=== PATIENT | female | born 1955 | race African-American/Black ===

== ENCOUNTER 2022-12-25 20:24 | Inpatient (IN) | payer BC, OTHER ==
--- OUTSIDE RECORDS SUMMARY | 2022-12-25 20:37 | XMS REPORT | Continuity of Care Document ---
:1955 Author Organization [facility] t Address [address] [facility]. [address] [place] [address] Care Team Providers Name Role Phone Fannie WHALEN, Ryan Galeas Primary Care Physician [phone] Harrison Jay MD Attending Clinician Lauren Gimenez MD Attending Clinician Kaylie Rashid DO Attending Clinician Abimbola Carlson NP Attending Clinician Camelia Zee MA Attending Clinician Unavailable Fannie WHALEN, Ryan Galeas Attending Clinician CHARLY DELEON Attending Clinician Unavailable LAUREN GIMENEZ Admitting Clinician Unavailable Payers Payer Name Policy Type Policy Number Effective Date Expiration Date S ource Problems Condition Condition Condition Status Onset Resolution Last Treating Co mments Source Name Details Category Date Date Treatment Clinician Date Colon Colon Disease Active Overview: Method i cancer cancer 11-[address] screening screening 00:00: g of this H ospita 00 note l might be different from the original. Added automatic ally from request for surgery [id number] Hyperparat Hyperparat Disease Active M ethodi hyroidism hyroidism 10-27 00:00: Hospita 00 l Hypercalce Hypercalce Disease Active M ethodi clemente clemente 10-27 00:00: Hospita 00 l Quadriceps Quadriceps Disease Active M ethodi weakness weakness 11-03 00:00: Hospita 00 l Primary Primary Disease Active Methodi osteoarthr osteoarthr 11-03 itis of itis of 00:00: Hospita left knee left knee 00 l Prediabete Prediabete Disease Active M ethodi s s 09-16 00:00: Hospita 00 l Osteopenia Osteopenia Disease Active M ethodi 09-16 00:00: Hospita 00 l Allergies, Adverse Reactions, Alerts Allergy Allergy Status Severity Reaction(s) Onset Inactive Treating Comm ents Source Name Type Date Date Clinician Penicill Propensi Active Hives Method i ins ty to 09-16 adverse 00:00: Hospita reaction 00 l s to drug Family History Family Member Diagnosis Comments Start Date Stop Date Source Natural mother Cancer [facility] Natural mother Lung cancer [facility] Social History Social Habit Start Date Stop Date Quantity Comments Source Gender identity 2020-08-30 Identifies as Method ist 15:43:36 female gender Hospital (finding) Sexual orientation 2020-08-30 Heterosexual Meth [facility]ist 15:43:36 (finding) Hospital Alcohol intake 2022-02-23 2022-02-23 Current drinker of [facility] 00:00:00 00:00:00 alcohol (finding) Hospita History of Social 2022-02-23 2022-02-[address] function 00:00:00 00:00:00 Hospital Alcohol Comment 2022-01-04 2022-01-04 Social drinker, Meth [facility]ist 00:00:00 00:00:00 once every few Hospital weeks Cigarettes smoked 2021-10-12 2021-10-[address] current (pack per 00:00:00 00:00:00 Hospita l day) - Reported Cigarette 2021-10-12 2021-10-12 [facility] pack-years 00:00:00 00:00:00 Hospital Tobacco use and 2021-10-12 2021-10-12 Smokeless tobacco [facility] exposure 00:00:00 00:00:00 non-user Hospital Tobacco Comment 2019-09-16 2019-09-16 Quit at age 27 [facility] 00:00:00 00:00:00 Hospital History of tobacco 1977 1982-07-06 Current smoker [facility] use 00:00:00 00:00:00 Hospital Sex Assigned At [birth year] F [facility] 00:00:00 00:00:00 Hospital Smoking Status Start Date Stop Date Source Ex-smoker 2021-10-12 00:00:00 2021-10-12 00:00:00 [facility] Hospital Medications Ordered Filled Start Stop Current Ordering Indication Dosage Frequency Signature Comments Components Source Medication Medication Date Date Medication? Clinician (SIG) Name Name tiZANidine Yes [id number] TAKE 1 M ethodi (ZANAFLEX) [address] 2 MG tablet 00:00: MOUTH Hospi ta 00 TWICE l DAILY NEEDED FOR MUSCLE SPASM MAY CAUSE DROWSINESS triamcinolo Yes [id number] Q.5D Apply M ethodi ne [address] (KENALOG) 00:00: 2 (two) Hospi ta 0.5 % 00 times a l ointment day. tiZANidine 2021- No [id number] 2mg Q.5D Take 1 Methodi (ZANAFLEX) 03-21 06- tablet (2 st 2 MG tablet 00:00: 00:00 mg total) Hospita 00 :00 by mouth 2 l (two) times a day as needed for muscle spasms. May cause drowsiness . magnesium Yes Methodi oxide [address] mg 00:00: Hospita magnesium 00 l tablet turmeric-tu 0 Yes Method i rmeric root 7 st extract 00:00: Hospita 450-50 mg 00 l capsule glucosamine Yes Method i /chondr brito 3 st A sod 00:00: Hospita (glucosamin 00 l e-[place]ond[place] in) 750-600 mg tablet mv,Ca,min-f 0 Yes Method i olic 3- st acid-vit K1 00:00: Hospit a (One-A-Day 00 l Women's 50 Plus) 400-20 mcg tablet calcium Yes Methodi carbonate-v 2- st itamin D3 00:00: Hospita 600 mg-10 00 l mcg (400 unit) capsule Immunizations Ordered Immunization Filled Immunization Date Status Commen ts Source Name Name [employer] READY TO USE 2021-11-23 Completed Meth[facility] COVID-19 MRNA 00:00:00 Hospital VACCINATION PFIZER COVID-19 MRNA 2021-05-03 Completed Meth [facility] VACCINATION 00:00:00 Hospital Influenza, 2021-05-03 Completed [facility] Unspecified 00:00:00 Hospital PFIZER COVID-19 MRNA 2020-09-03 Completed Meth [facility]ist VACCINATION 00:00:00 [facility] PFIZER COVID-19 MRNA 2020-08-13 Completed Meth odist VACCINATION 00:00:00 Hospital FLUZONE QUAD 2019-04-07 Completed [facility] 00:00:00 Hospital Vital Signs Vital Name Observation Time Observation Value Comments Source Systolic blood 2022-02-23 21:14:00 129 mm[Hg] [facility] pressure Diastolic blood 2022-02-23 21:14:00 86 mm[Hg] [facility] pressure Heart rate 2022-02-23 21:14:00 65 /min [facility] Body height 2022-02-23 21:14:00 160 cm [facility] Body weight 2022-02-23 21:14:00 64.411 kg [facility] BMI 2022-02-23 21:14:00 25.15 kg/m2 [facility] Respiratory rate 2022-01-04 19:30:00 22 /min [facility] Oxygen saturation in 2022-01-04 19:30:00 98 /min [facility] Arterial blood by Pulse oximetry Body temperature 2022-01-04 19:03:00 36.56 [facility] Procedures Procedure Date / Time Performing Clinician Source Performed BONE DENSITY 2022-03-06 20:59:51 Harrison [facility] CALCIUM, 24 HOUR URINE 2022-03-06 13:18:00 Misty, Harrison [facility] (W/CREATININE) PHOSPHORUS LEVEL 2022-02-27 15:51:00 Harrison [facility] PARATHYROID HORMONE 2022-02-27 [facility] 2022-02-27 15:51:00 Harrison [facility]ital HEMOGLOBIN A1C 2022-02-27 15:51:00 Harrison [facility]ital COMPREHENSIVE METABOLIC 2022-02-27 15:51:00 [facility]IT[facility] D 25 HYDROXY 2022-02-27 15:51:00 Misty Harrison [facility] LEVEL THYROID STIMULATING 2022-02-27 15:51:00 Misty Harrison [facility] HORMONE T4, FREE 2022-02-27 15:51:00 MistyHarrison [facility] SURGICAL PATHOLOGY 2022-01-04 19:55:00 Pernell [facility] REQUEST COLONOSCOPY 2022-01-04 18:33:00 [place] [facility] Plan of Care Planned Activity Planned Date Details Comments Source Future Scheduled 2022-12-20 Hepatitis C screening [facility] Test 10:05:28 (procedure) [code = 874367999] Future Scheduled 2022-12-20 Screening for [facility] Test 10:05:28 malignant neoplasm of cervix (procedure) [code = 564646235] Future Scheduled 2022-12-20 COLONOSCOPY SCREENING [facility] Test 10:05:28 [code = COLONOSCOPY SCREENING] Future Scheduled 2022-12-20 SHINGLES VACCINES ([address] [facility] Test 10:05:28 of 2) [code = SHINGLES VACCINES (1 of 2)] Future Scheduled 2022-12-20 COVID-19 VACCINE (5 - [facility] Test 10:05:28 Booster for Pfizer series) [code = COVID-19 VACCINE (5 - Booster for Pfizer series)] Future Scheduled 2022-12-20 65+ PNEUMOCOCCAL [facility] Test 10:05:28 VACCINE (1 - PCV) [code = 65+ PNEUMOCOCCAL VACCINE (1 - PCV)] Future Scheduled 2022-12-20 BREAST CANCER [facility] Test 10:05:28 SCREENING [code = BREAST CANCER SCREENING] Future Scheduled 2022-12-20 INFLUENZA VACCINE [facility] Test 10:05:28 [code = INFLUENZA VACCINE] Encounters Start End Encounter Admission Attending Care Care Encounter Source Date/Time Date/Time Type Type Clinicians Facility Department ID 2022-03-10 2022-03-10 Oli Molina2.840.1 [id number] Bipin 00:00:00 00:00:00 Only Harrison 34013.1.1 852 3.430.2.7 Hospit a .3.296430 l .8 2022-03-06 2022-03-06 [facility], 1.2.840.1 [id number] Methodi 15:20:23 23:59:00 Encounter Harrison [address]381.1.[address] 3.430.2.7 Hospit a .3.090564 l .8 2022-03-06 2022-03-06 Outpatient [facility] [id number] [place] 00:00:00 00:00:[address] HARRISON [address] 2022-03-06 2022-03-06 Travel 1.2.840.1 1.2.134.624 [id number] Methodi 00:00:00 00:00:[address] 3.430.2.7 0.2.7.3.698 Ho spita .3.046129 084.8 l .8 2022-03-01 2022-03-01 Travel 1.2.840.1 1.2.816.414 [id number] Methodi 00:00:00 00:00:[address] 3.430.2.7 0.2.7.3.698 Ho spita .3.656874 084.8 l .8 2022-02-23 2022-02-23 [facility] 1.2.840.1 [id number] Methodi 16:00:00 16:58:28 Visit Harrison [address]5565.1.[address] 3.430.2.7 Hospit a .3.921139 l .8 2022-02-23 2022-02-23 Outpatient [facility] [id number] [place] 00:00:00 00:00:00 HARRISON [address] 2022-02-23 2022-02-23 Travel 1.2.840.1 1.2.357.635 [id number] Methodi 00:00:00 00:00:[address] 3.430.2.7 0.2.7.3.698 Ho spita .3.036085 084.8 l .8 2022-01-04 2022-01-04 Hospital Pernell, Lauren 1.2.840.1 [id number] Methodi 12:02:00 14:52:[address] 3.430.2.7 Hospit a .3.920806 l .8 2022-01-04 2022-01-04 Surgery [place], Lauren 1.2.840.1 [id number] Methodi 13:40:00 14:20:[address] 3.430.2.7 Hospit a .3.216353 l .8 2022-01-04 2022-01-04 Anesthesia , Kaylie 1.2.840.1 [id number] Methodi 13:38:00 14:00:00 Event Abimbola Carlson 72939.1.[address] 3.430.2.7 Hospit a .3.545872 l .8 2022-01-04 2022-01-04 [id number] [place] 00:00:00 00:00:[address] 2022-01-04 2022-01-04 Telephone Saadia, 1.2.840.1 [id number] Methodi 00:00:00 00:00:[address] 3.430.2.7 Hospit a .3.038597 l .8 2022-01-02 2022-01-02 Travel 1.2.840.1 1.2.076.333 [id number] [id number] Methodi 00:00:00 00:00:[address] 3.430.2.7 0.2.7.3.698 spita .3.995183 084.8 l .8 2021-12-28 2021-12-28 Refill Fannie, 1.2.840.1 [id number] 4149 Methodi 00:00:00 00:00:[address] [place] 3.430.2.7 Hospit a .3.203039 l .8 2021-11-28 2021-11-30 Outpatient [facility] [id number] [place] 00:00:00 00:00:[address] 2021-11-28 2021-11-28 Outpatient UM, [facility] [id number] [place] 00:00:00 00:00:00 RYAN [address] 2021-11-07 2021-11-07 Outpatient UM, [facility] [id number] [place] 00:00:00 00:00:00 RYAN [address] 2021-10-31 2021-10-31 Outpatient UM, [facility] [id number] [place] 00:00:00 00:00:[address] RYAN [address] 2021-10-12 2021-10-12 Outpatient [facility] [id number] [place] 00:00:00 00:00:[address] 2021-03-21 2021-03-21 Outpatient [facility] [id number] [place] 00:00:00 00:00:[address] 2020-11-30 2020-11-30 Outpatient DELEON, [facility] [id number] [place] 00:00:00 00:00:00 CHARLY [address] 2020-11-03 2020-11-03 Outpatient DELEON, [facility] [id number] [place] 00:00:00 00:00:00 CHARLY [address] 2020-11-03 2020-11-03 Outpatient DELEON, [facility] [id number] [place] 00:00:00 00:00:00 CHARLY [address] 2020-10-04 2020-10-04 Outpatient [facility], [facility] [id number] [place] 00:00:00 00:00:00 RYAN [address] 2020-10-04 2020-10-04 Outpatient UM, [facility] [id number] [place] 00:00:00 00:00:00 RYAN [address] 2020-09-27 2020-09-27 Outpatient [facility] [id number] [place] 00:00:00 00:00:[address] 2020-09-27 2020-09-27 Outpatient [facility] [id number] [place] 00:00:00 00:00:00 RYAN [address] 2020-09-20 2020-09-20 Outpatient [facility] [id number] [place] 00:00:00 00:00:[address] 2020-08-30 2020-08-30 Outpatient [facility] [id number] [place] 00:00:00 00:00:[address] RYAN [address] 2019-09-25 2019-09-25 Outpatient [facility] [id number] [place] 00:00:00 00:00:00 RYAN 102 [facility] [address] 2019-09-25 2019-09-25 Outpatient [facility] [id number] [place] 00:00:00 00:00:00 RYAN [address] Results Test Description Test Time Test Comments Results Result Comments Source Calcium 24 hour Urine (w/Creatinine) 2022-03-08 00:43:00 Test Item Value Reference Range Interpretation Comme nts Calcium/creat.ratio (test 261 See_Comment [ Automated message] The code = 00806-3) system which generated this result tra nsmitted reference range : 30 - 275 mg/g creat. The reference range was not used to interpr et this result as normal/abnormal . Calcium, 24 hour urine 290 mg/24 h H Refe rence Range 35-250 (test code = 6874-2) Low sheila cium diet 35-200 Creatinine, 24 hour urine 1.11 See_Comment [ Automated message] The (test code = 2162-6) system which generated this result tra nsmitted reference range : 0.50 - 2.15 g/24 h. Th e reference range was not used to interpr et this result as normal/abnormal . LAKE (test code = LAKE) SPLIT 02/27/2022 FROM [id number]:UNKNO WN URINE VOLUME: 1100/24FASTING: UNKNOWN RAC (test code = RAC) Performing Organization Information: Site ID: RGA Name: [facility] Address: [address] [place] [phone] Director: Christian L Joe Lab Interpretation (test Abnormal code = 91071-6) [facility] metabolic [id number] 18:19:00 Test Item Value Reference Interpretation Comments Range Glucose (test code 124 mg/dL 65-99 H Fasting reference = 2345-7) interval For so casper without known diabetes, a glu cose valuebetween 10 0 and 125 mg/dL is consistent withprediabetes and should be confi rmed with afollow-up test. BUN (test code = 20 mg/dL 02-20 3094-0) Creatinine (test 1.05 mg/dL 0.50-1.05 code = 2160-0) eGFR (test code = 59 See_Comment L The eGFR i s based on 8257) the CKD-EPI 202 1 equation. To calculate the n ew eGFR from a pre vious Creatinine or Cystatin Cresul t, go to https://www.[employer].o rg/professional s/kdo qi/gfr%5Fcalcul ator [Automated mess age] The system [employer] generated this result transmit margo reference range : > OR = 60 mL/min/1.73m2. The reference range was not used to interpret this result as normal/abnormal . BUN/creatinine NOT APPLICABLE See_Comment [Automated message] ratio (test code = The [employer] which 3097-3) generated this result transmit margo reference range : 6 - 22 (calc). The reference range was not used to interpret this result as normal/abnormal . Sodium (test code = 139 mmol/L 105-809 1901-2) Potassium (test 5.3 mmol/L 3.5-5.3 code = 2823-3) Chloride (test code 104 mmol/L 98-110 = 2075-0) CO2 (test code = 28 mmol/L 20-32 8-9) Calcium (test code 11.1 mg/dL 8.6-10.4 H = 19531-9) Protein (test code 7.2 g/dL 6.1-8.1 = 2885-2) Albumin, S (test 4.3 g/dL 3.6-5.1 code = 1751-7) Globulin, total 2.9 See_Comment [Automated message] (test code = The system [employer] 19663-8) generated this result transmit margo reference range : 1.9 - 3.7 g/dL (sheila c). The reference r donaldo was not used to interpret this result as normal/abnormal . Albumin/globulin 1.5 See_Comment [Automated message] ratio (test code = The syste m which 1758-) generated this result transmit margo reference range : 1.0 - 2.5 (calc). T he reference range was not used to interpret this result as normal/abnormal . Total bilirubin 0.5 mg/dL 0.2-1.2 (test code = 1975-2) Alkaline 56 U/L 37-153 phosphatase (test code = 6768-6) AST (test code = 13 U/L 10-35 1920-8) ALT (test code = 12 U/L 6-29 1742-6) LAKE (test code = COLLECTION KIT LAKE) GIVEN TO PATIENT. PATIENT ADVISED TO RETURN. RAC (test code = Performing RAC) Organization Information: Site ID: RGA Name: [facility] Address: [address] [place] [phone] Director: Christian Diaz Lab Interpretation Abnormal (test code = 10979-0) [facility] [id number] 18:19:00 Test Item Value Reference Interpretation Comments Range Hemoglobin A1C 6.0 See_Comment H For someone w mark (test code = known diabetes, a 4548-4) hemoglobin A1c value between 5.7% an d 6.4% is consist ent withprediabetes and should be confi rmed with a follow-u p test. For someo ne with known diab etes, a value <7%indicates that their diabetes is well controlled . U4kuehlblc shou ld be individualized based on duration ofdiabetes, age , comorbid condit ions, and otherconsiderat ions. This assay resu lt is consistent with an increased risko f diabetes. Curre ntly, no consensus ex ists regarding use ofhemoglobin A1 c for diagnosis of diabetes for children. [Auto mated message] The sy stem which generated this result transmit margo reference range : <5.7 % of total Hgb. The reference r donaldo was not used to interpret this result as normal/abnormal . LAKE (test code = COLLECTION KIT LAKE) GIVEN TO PATIENT. PATIENT ADVISED TO RETURN. RAC (test code = Performing RAC) Organization Information: Site ID: KAILA Name: [facility] Address: [address] [place] [phone] Director: Christian Diaz Lab Interpretation Abnormal (test code = 83612-7) [facility] [id number] 18:19:00 Test Item Value Reference Range Interpretation Comments Magnesium (test code 2.3 mg/dL 1.5-2.5 = 08852-3) LAKE (test code = LAKE) COLLECTION KIT GIVEN TO PATIENT. PATIENT ADVISED TO RETURN. RAC (test code = RAC) Performing Organization Information: Site ID: KAILA Name: [facility] Address: [address] [place] [phone] Director: Christian Diaz [facility] [id number] 18:19:00 Test Item Value Reference Interpretation Comments Range PTH (test 70 pg/mL 16-77 Interpretive G uide Intact code = PTH 2731-8) Calcium-------- ---- ---Normal Parathyroid Nor mal NormalHypoparat hyroidism Low or Low Normal LowHyperparathy roidism Primary Normal or High High Secondary High Normal or Low Tertiary High HighNon-Parathy roid Hypercalcemia L ow or Low Normal High LAKE (test COLLECTION KIT code = GIVEN TO PATIENT. LAKE) PATIENT ADVISED TO RETURN. RAC (test Performing code = Organization RAC) Information: Site ID: RGA Name: [facility] Address: [address] [place] [phone] Director: Christian Diaz [facility] [id number] 18:19:00 Test Item Value Reference Range Interpretation Comments Phosphorus (test code 3.2 mg/dL 2.1-4.3 = 2777-1) LAKE (test code = LAKE) COLLECTION KIT GIVEN TO PATIENT. PATIENT ADVISED TO RETURN. RAC (test code = RAC) Performing Organization Information: Site ID: KAILA Name: [facility] Address: [address] [place] [phone] Director: Christian Diaz [place] [address], [id number] 18:19:00 Test Item Value Reference Range Interpretation Comments T4, free (test code 1.1 ng/dL 0.8-1.8 = 3024-7) LAKE (test code = COLLECTION KIT GIVEN TO LAKE) PATIENT. PATIENT ADVISED TO RETURN. RAC (test code = Performing Organization RAC) Information: Site ID: KAILA Name: [facility] Address: [address] [place] [address] Director: [facility] stimulating [id number] 18:19:00 Test Item Value Reference Range Interpretation Comments TSH (test 1.29 See_Comment [Automated mes dafne] code = The system whic h 3016-3) generated this result transmit margo reference range : 0.40 - 4.50 mIU /L. The reference r donaldo was not used to interpret this result as normal/abnormal . LAKE (test COLLECTION KIT GIVEN code = LAKE) TO PATIENT. PATIENT ADVISED TO RETURN. RAC (test Performing code = RAC) Organization Information: Site ID: Sabino Name: [facility] Address: [address] [place] [address] Director: [facility] Center[facility]itamin D 25 hydroxy [id number] 18:19:00 Test Item Value Reference Range Interpretation Comments Vitamin D, 25-hydroxy 25 ng/mL 30-100 L Vitami n D Status (test code = 1988-) 25-OH V itamin D: Deficiency: <20 ng/mLInsufficie n cy: 20 - 29 ng/mLOptimal: > or = 30 ng/mL For 25-OH Vitamin D testing on patients on D2-supplementat i on and patients for whom quantitation of D2 and D3 fractions is required, the QuestAssureD(TM ) 25-OH VIT D, (D2,D3), LC/MS/MS is recommended: order code 9288 8 (patients >2yrs).See Note 1 Note 1 For additional information, please refer to http://educatio n .[employer] SciencesDiagnosti [place]/faq/FAQ19 9 (This link is being provided for informational/e d ucational purposes only.) LAKE (test code = LAKE) COLLECTION KIT GIVEN TO PATIENT. PATIENT ADVISED TO RETURN. RAC (test code = RAC) Performing Organization Information: Site ID: RGA Name: [facility] Address: [address] [place] [phone] Director: Christian Diaz Lab Interpretation Abnormal (test code = 47389-5) [facility] [id number] 14:18:35 Test Item Value Reference Range Interpretation Comments Case number (test code = [id number]) Surgical pathology See link below for report (test code = PDF Lab Report 2255) Result status (test code This is Final Report = [id number]) for [id number] [facility]
[2022-12-25] MEDS ORDERED: LEVALBUTEROL 1.25 MG/3 ML NEB ONE (21:07)
[2022-12-25] MEDS ORDERED: predniSONE 20 MG TAB ONE (21:07)
[2022-12-25] MEDS ORDERED: WATER FOR INJ,STERILE 10 ML ONE (21:07)
[2022-12-25 21:23] LABS: Absolute Lymphocytes (CBC) 2.5 K/uL (0.7-4.9); Hematocrit 43.3 % (36.0-45.0); Lymphocytes % 35.3 % (15.3-44.8); MCV 82.7 fL (80-100); Protime INR 1.13; RBC Red Blood Cell Count 5.24 M/uL (3.86-4.86)
[2022-12-25 21:39] LABS: SARS-CoV-2 Antigen Rapid Res Negative (Negative)
[2022-12-25 22:04] LABS: Albumin 3.8 g/dL (3.4-5.0); Bilirubin Direct 0.1 mg/dL (0-0.2); Bilirubin Indirect, Calculated 0.2 mg/dL (0.2-0.8); Bilirubin Total 0.3 mg/dL (0.2-1.0); Magnesium 2.5 mg/dL (1.6-2.4); Protein, Total 8.1 g/dL (6.4-8.2)
[2022-12-25 22:07] LABS: Troponin High Sensitivity 815.7 pg/mL (<58.9)
--- NOTE | 2022-12-25 22:26 | RAD REPORT ---
EXAM DESCRIPTION: RAD - Chest Single View - 12/25/2022 10:13 pm CLINICAL HISTORY: SOB COMPARISON: No comparisons FINDINGS: Lines: None. Lungs: No evidence of edema or pneumonia. Pleural: No significant pleural effusions or pneumothorax. Cardiac: The heart size is within normal limits. Mediastinum: Within normal limits. Bones: No acute fractures. Other: None IMPRESSION: No acute cardiopulmonary disease.
[2022-12-25] MEDS ORDERED: ASPIRIN 81 MG CHEWABLE TABLET ONE (23:22)
[2022-12-25] MEDS ORDERED: METOPROLOL TAR 25 MG TAB ONE (23:22)
--- NOTE | 2022-12-26 00:28 | EDPHYS ---
Physician Documentation [facility] Name: Yuliet Cadena Age: 67 yrs Sex: Female : 1955 Arrival Date: 12/25/2022 Time: 20:24 Bed 5 Private MD: ED Physician Tin Morris HPI: 12/25 20:50 This 67 yrs old Black Female presents to ER via Wheelchair with complaints of Breathing cp Difficulty. 20:50 The patient has shortness of breath at rest. Onset: The symptoms/episode began/occurred cp suddenly, today. 20:50 Duration: The symptoms are continuous, and are steadily getting worse. cp 20:50 The patient's shortness of breath is aggravated by light activity, is alleviated by cp nothing. Associated signs and symptoms: Pertinent negatives: chest pain, productive cough, diaphoresis, fever, loss of consciousness, vomiting. Severity of symptoms: in the emergency department the symptoms are unchanged despite home interventions. The patient has not experienced similar symptoms in the past. Historical: - Allergies: 20:41 PENICILLINS; kd3 - Immunization history:: Adult Immunizations up to date. - Social history:: Smoking status: Patient/guardian denies using tobacco, but has a distant history of tobacco abuse. ROS: 20:55 Constitutional: Negative for body aches, chills, fever, poor PO intake. cp 20:55 Eyes: Negative for injury, pain, redness, and discharge. cp 20:55 ENT: Negative for drainage from ear(s), ear pain, sore throat, difficulty swallowing, difficulty handling secretions. 20:55 Neck: Negative for pain with movement, pain at rest, stiffness. 20:55 Cardiovascular: Negative for chest pain, edema, palpitations. 20:55 Respiratory: Positive for shortness of breath, at rest. Negative for cough. 20:55 Abdomen/GI: Negative for abdominal pain, nausea, vomiting, and diarrhea. 20:55 Back: Negative for pain at rest, pain with movement. 20:55 Neuro: Negative for altered mental status, headache, syncope, weakness. 20:55 All other systems are negative. Exam: 21:00 Constitutional: The patient appears in no acute distress, alert, awake, cp non-diaphoretic, non-toxic, well developed, well nourished, uncomfortable. 21:00 Head/Face: Normocephalic, atraumatic. cp 21:00 Eyes: Periorbital structures: appear normal, Conjunctiva: normal, no exudate, no cp injection, Sclera: no appreciated abnormality, Lids and lashes: appear normal, bilaterally. 21:00 ENT: External ear(s): are unremarkable, Nose: is normal, Mouth: Lips: moist, Oral mucosa: pink and intact, moist, Posterior pharynx: is normal, airway is patent, no erythema, no exudate. 21:00 Neck: ROM/movement: is normal, is supple, without pain, no range of motions limitations, no meningismus, no nuchal rigidity. 21:00 Chest/axilla: Inspection: normal. 21:00 Cardiovascular: Rate: tachycardic, Rhythm: regular, Edema: is not appreciated, JVD: is not appreciated. 21:00 Respiratory: mild respiratory distress is noted, Respirations: labored breathing, that is moderate, tachypnea, that is mild, Breath sounds: decreased breath sounds, are not appreciated, stridor, is not appreciated, wheezing: that is mild, is heard diffusely. 21:00 Abdomen/GI: Inspection: abdomen appears normal, Palpation: abdomen is soft and non-tender, in all quadrants. 21:00 Back: pain, is absent, ROM is normal. 21:00 Skin: cellulitis, is not appreciated, no rash present. cp 21:00 Neuro: Orientation: to person, place \T\ time. Mentation: is normal, Motor: moves all fours, strength is normal, Sensation: is normal. 21:14 ECG was reviewed by the Attending Physician. cp Vital Signs: 20:39 BP 135 / 73; Pulse 107; Resp 25; Temp 98.3(O); Pulse Ox 91% on R/A; Weight 64.86 kg; kd3 Height 5 ft. 3 in. ; 21:30 BP 141 / 84; Pulse 111; Resp 16; Pulse Ox 100% on R/A; ph 22:17 BP 134 / 94; Pulse 120; Resp 18; Pulse Ox 96% on R/A; ph 23:37 BP 138 / 88; Pulse 118; Resp 20; Pulse Ox 95% on R/A; ll3 0530 00:30 BP 125 / 95; Pulse 96; Resp 20; Pulse Ox 98% on R/A; Pain 0/10; pf1 00:46 Weight 59 kg; pf1 01:30 BP 119 / 90; Pulse 98; Resp 20 S; Pulse Ox 97% on R/A; Pain 0/10; pf1 00:46 Body Mass Index 23.04 (59.00 kg, 160.02 cm) pf1 12/26 00:30 Pain Scale: Adult pf1 01:30 Pain Scale: Adult pf1 MDM: 12/25 20:44 Patient medically screened. cp 21:00 Differential diagnosis: Anemia Anxiety Reaction CHF exacerbation, Myocardial Infarction cp pneumonia, Pneumothorax pulmonary edema, Pulmonary Embolism reactive airway disease, Unstable Angina. 12/26 00:25 Data reviewed: vital signs, nurses notes, lab test result(s), EKG, radiologic studies, cp CT scan, plain films. 00:25 Antibiotic administration: Not indicated, the patient does not have an appreciated cp infiltrate. Management of patient was discussed with the following: Gravity Manager: DR Lorenzana who wants heparin administered with heparin drip and admit to hospitalist. I considered the following discharge prescriptions or medication management in the emergency department Medications were administered in the Emergency Department. See MAR. Counseling: I had a detailed discussion with the patient and/or guardian regarding: the historical points, exam findings, and any diagnostic results supporting the discharge/admit diagnosis, lab results, radiology results, the need for further work-up and treatment in the hospital. Response to treatment: the patient's symptoms have markedly improved after treatment. 00:30 Management of patient was discussed with the following: Hospitalist: Ofelia Peters NP cp will admit after discussion. 12/25 20:45 Order name: Basic Metabolic Panel; Complete Time: 22: cp 12/25 20:45 Order name: CBC with Diff; Complete Time: 22: cp 12/25 20:45 Order name: LFT's; Complete Time: 22: cp 12/25 20:45 Order name: Magnesium; Complete Time: 22: cp 12/25 20:45 Order name: NT PRO-BNP; Complete Time: 22: cp 12/25 20:45 Order name: PT-INR cp 12/25 20:45 Order name: Troponin HS; Complete Time: 22: 12/25 22:09 Interpretation: Reviewed. 12/25 20:49 Order name: SARS RAPID; Complete Time: 22:09 cp 12/25 20:49 Order name: Influenza Screen (a \T\ B); Complete Time: 22:09 cp 12/26 00:49 Order name: Ptt, Activated ll3 12/26 01:19 Order name: PTT, Activated Partial Thromb EDMS 12/26 01:21 Order name: Troponin High Sensitivity ll3 12/25 20:45 Order name: XRAY Chest (1 view); Complete Time: 22:52 cp 12/25 22:52 Interpretation: Report review. cp 12/25 22:14 Order name: CT Chest For PE Angio cp 12/25 20:45 Order name: EKG; Complete Time: 20:46 cp 12/25 20:45 Order name: Cardiac monitoring; Complete Time: 20:55 cp 12/25 20:45 Order name: EKG - Nurse/Tech; Complete Time: 21:10 cp 12/25 20:45 Order name: IV Saline Lock; Complete Time: 21:45 cp 12/25 20:45 Order name: Labs collected and sent; Complete Time: 21:05 cp 12/25 20:45 Order name: O2 Per Protocol; Complete Time: 20:55 cp 12/25 20:45 Order name: O2 Sat Monitoring; Complete Time: 20:55 cp 12/25 21:23 Order name: Misc. Order: Recollect GREEN TOP; Complete Time: 21:45 rv1 12/26 00:58 Order name: Misc. Order: Recollect BLUE TOP; Complete Time: 01:07 rv1 EC/29 21:14 Rate is 101 beats/min. Rhythm is regular. CO interval is normal. QRS interval is cp normal. QT interval is normal. Interpreted by me. Reviewed by me. Administered Medications: 21:05 Drug: predniSONE PO 60 mg Route: PO; kd3 22:00 Follow up: Response: No adverse reaction; Marked relief of symptoms pf1 21:05 Drug: Levalbuterol Inhalation 1.25 mg Route: Inhalation; kd3 22:00 Follow up: Response: No adverse reaction; Marked relief of symptoms pf1 23:18 Drug: Aspirin PO Chewable Tablet 324 mg Route: PO; ll3 12/26 00:00 Follow up: Response: No adverse reaction; Marked relief of symptoms; Pain is decreased pf1 12/25 23:18 Drug: Metoprolol PO 25 mg Route: PO; ll3 12/26 00:00 Follow up: Response: No adverse reaction; Marked relief of symptoms pf1 01:16 Drug: Heparin (DVT/PE- Bolus per protocol) - HEParin IVP 80 units/kg {Co-Signature: pf1 ll3 (Darlin Bosch RN).} Route: IVP; Site: left antecubital; 01:33 Drug: Heparin (DVT/PE Drip) - ([place] [address] units, D5W IV 500 ml) 18 units/kg/hr pf1 {Co-Signature: ll3 (Preethi Merchant RN).} Route: IV; Rate: calculated rate; Site: left antecubital; 01:42 Follow up: Response: No adverse reaction; Marked relief of symptoms; IV Status: pf1 Infusion continued upon admission Disposition: 04:26 Co-signature as Attending Physician, Tin Morris MD I agree with the assessment sp4 and plan of care. I reviewed the patient's care provided by the Advanced Practice Provider and agree with the diagnosis and treatment plan. Disposition Summary: 12/26/22 00:27 Hospitalization Ordered Hospitalization Status: Inpatient Admission cp Location: Telemetry/[facility] (Inpatient) cp Condition: Stable cp Problem: new cp Symptoms: have improved cp Bed/Room Type: Standard Room Assignment: [facility](12/26/22 00:41) Provider: Deborah Molina(12/26/22 00:41) sb4 Diagnosis - Saddle embolus of pulmonary artery with acute cor pulmonale cp - Dyspnea cp Forms: - Medication Reconciliation Form cp - SBAR form cp Signatures: Dispatcher [employer] EDMS John Baeza PA PA cp Garcia, Cindy RN RN cg Preethi Merchant RN RN ll3 Tesha Macdonald RN RN kd3 Nella Peters PA-C PA-C sb4 Darlin Bosch, YANELIS RN pf1 Heidi Ibrahim Sergey, MD MD sp4 Darlin Bosch RN pf1 Preethi Merchant RN ll3 Corrections: (The following items were deleted from the chart) 12/25 20:41 20:41 Allergies: No Known Allergies; kd3 kd3 05/30 00:41 00:27 Mekhi Irby cp sb4 00:41 00:27 cp
--- NOTE | 2022-12-26 00:28 | ER ---
Nurse's Notes [facility] Name: Yuliet Cadena Age: 67 yrs Sex: Female : 1955 Arrival Date: 12/25/2022 Time: 20:24 Bed 5 Private MD: Diagnosis: Saddle embolus of pulmonary artery with acute cor pulmonale;Dyspnea Presentation: 12/25 20:39 Chief complaint: Patient states: I was on my way to a family celebration for a kd3 graduation and all of the sudden i was getting out of the car and i felt like i couldn't catch my breath. This has never happened to me before. Coronavirus screen: Vaccine status: Patient reports receiving the 2nd dose of the covid vaccine. Ebola Screen: No symptoms or risks identified at this time. Initial Sepsis Screen: Does the patient meet any 2 criteria? RR > 20 per min. HR > 90 bpm. Does the patient have a suspected source of infection? No. Patient's initial sepsis screen is negative. Risk Assessment: Do you want to hurt yourself or someone else? Patient reports no desire to harm self or others. Onset of symptoms was December 25, 2022. 20:39 Method Of Arrival: Wheelchair kd3 20:39 Acuity: RUTHY 3 kd3 Triage Assessment: 20:41 General: Appears uncomfortable, Behavior is calm, cooperative. Pain: Denies pain. kd3 Respiratory: Reports shortness of breath at rest Onset: The symptoms/episode began/occurred today, the patient has moderate shortness of breath. Historical: - Allergies: 20:41 PENICILLINS; kd3 - Immunization history:: Adult Immunizations up to date. - Social history:: Smoking status: Patient/guardian denies using tobacco, but has a distant history of tobacco abuse. Screenin:22 [facility] ED Fall Risk Assessment (Adult) History of falling in the last 3 months, ph including since admission No falls in past 3 months (0 pts) Confusion or Disorientation No (0 pts) Intoxicated or Sedated No (0 pts) Impaired Gait No (0 pts) Mobility Assist Device Used No (0 pt) Altered Elimination No (0 pt) Score/Fall Risk Level 0 - 2 = Low Risk Oriented to surroundings, Maintained a safe environment, Educated pt \T\ family on fall prevention, incl call for assistance when getting out of bed. Abuse screen: Denies threats or abuse. Denies injuries from another. Nutritional screening: No deficits noted. Tuberculosis screening: No symptoms or risk factors identified. Assessment: 21:22 General: Appears uncomfortable, Behavior is calm, cooperative. Pain: Denies pain. ph Neuro: Level of Consciousness is awake, alert, obeys commands, Oriented to person, place, time, situation. Cardiovascular: Reports shortness of breath, Denies chest pain, Rhythm is sinus tachycardia. Respiratory: Reports shortness of breath Airway is patent Respiratory effort is labored, Respiratory pattern is regular, symmetrical, Derm: Skin is pink, warm \T\ dry. 22:30 Reassessment: Patient appears in no apparent distress at this time. Patient is alert, pf1 oriented x 3, equal unlabored respirations, skin warm/dry/pink. Patient states symptoms have improved. 23:30 Reassessment: Patient appears in no apparent distress at this time. Patient and/or pf1 family updated on plan of care and expected duration. Pain level reassessed. Patient is alert, oriented x 3, equal unlabored respirations, skin warm/dry/pink. Patient states symptoms have improved. 12/26 00:30 Reassessment: Patient appears in no apparent distress at this time. Patient and/or pf1 family updated on plan of care and expected duration. Pain level reassessed. Patient is alert, oriented x 3, equal unlabored respirations, skin warm/dry/pink. Patient states feeling better. Patient states symptoms have improved. 01:30 Reassessment: Patient appears in no apparent distress at this time. Patient and/or pf1 family updated on plan of care and expected duration. Pain level reassessed. Patient is alert, oriented x 3, equal unlabored respirations, skin warm/dry/pink. Patient states feeling better. Patient states symptoms have improved. Vital Signs: 12/25 20:39 BP 135 / 73; Pulse 107; Resp 25; Temp 98.3(O); Pulse Ox 91% on R/A; Weight 64.86 kg; kd3 Height 5 ft. 3 in. ; 21:30 BP 141 / 84; Pulse 111; Resp 16; Pulse Ox 100% on R/A; ph 22:17 BP 134 / 94; Pulse 120; Resp 18; Pulse Ox 96% on R/A; ph 23:37 BP 138 / 88; Pulse 118; Resp 20; Pulse Ox 95% on R/A; ll3 12/26 00:30 BP 125 / 95; Pulse 96; Resp 20; Pulse Ox 98% on R/A; Pain 0/10; pf1 00:46 Weight 59 kg; pf1 01:30 BP 119 / 90; Pulse 98; Resp 20 S; Pulse Ox 97% on R/A; Pain 0/10; pf1 00:46 Body Mass Index 23.04 (59.00 kg, 160.02 cm) pf1 12/26 00:30 Pain Scale: Adult pf1 01:30 Pain Scale: Adult pf1 ED Course: 12/25 20:25 Patient arrived in ED. mr 20:31 John Baeza PA is PHCP. cp 20:31 Tin Morris MD is Attending Physician. cp 20:41 Triage completed. kd3 20:41 Arm band placed on right wrist. kd3 21:05 Basic Metabolic Panel Sent. kd3 21:05 CBC with Diff Sent. kd3 21:05 LFT's Sent. kd3 21:05 Magnesium Sent. kd3 21:05 NT PRO-BNP Sent. kd3 21:05 PT-INR Sent. kd3 21:05 Troponin HS Sent. kd3 21:22 Patient has correct armband on for positive identification. Bed in low position. Call ph light in reach. Side rails up X 1. Adult w/ patient. 21:40 Inserted saline lock: 22 gauge in left antecubital area, using aseptic technique. Blood ah1 collected. 22:14 XRAY Chest (1 view) In Process Unspecified. EDMS 23:37 CT Chest For PE Angio In Process Unspecified. EDMS 12/26 00:26 Mekhi Irby is Hospitalizing Provider. cp 00:41 Deborah Molina MD is Hospitalizing Provider. sb4 01:41 No provider procedures requiring assistance completed. Patient admitted, IV remains in pf1 place. 01:42 Troponin High Sensitivity Sent. pf1 Administered Medications: 12/25 21:05 Drug: predniSONE PO 60 mg Route: PO; kd3 22:00 Follow up: Response: No adverse reaction; Marked relief of symptoms pf1 21:05 Drug: Levalbuterol Inhalation 1.25 mg Route: Inhalation; kd3 22:00 Follow up: Response: No adverse reaction; Marked relief of symptoms pf1 23:18 Drug: Aspirin PO Chewable Tablet 324 mg Route: PO; ll3 12/26 00:00 Follow up: Response: No adverse reaction; Marked relief of symptoms; Pain is decreased pf1 12/25 23:18 Drug: Metoprolol PO 25 mg Route: PO; ll3 12/26 00:00 Follow up: Response: No adverse reaction; Marked relief of symptoms pf1 01:16 Drug: Heparin (DVT/PE- Bolus per protocol) - HEParin IVP 80 units/kg {Co-Signature: pf1 ll3 (Darlin Bosch RN).} Route: IVP; Site: left antecubital; 01:33 Drug: Heparin (DVT/PE Drip) - ([place] [address] units, D5W IV 500 ml) 18 units/kg/hr pf1 {Co-Signature: [email or web address] (Preethi Merchant RN).} Route: IV; Rate: calculated rate; Site: left antecubital; 01:42 Follow up: Response: No adverse reaction; Marked relief of symptoms; IV Status: pf1 Infusion continued upon admission Medication: 01:41 VIS not applicable for this client. pf1 Outcome: 00:27 Decision to Hospitalize by Provider. cp 01:52 Admitted to Med/surg accompanied by nurse, via stretcher, room 228, with chart, Report pf1 called to YANELIS Hall 01:52 Condition: stable 01:52 Instructed on the need for admit, Demonstrated understanding of instructions. 02:03 Patient left the ED. pf1 Signatures: Dispatcher [facility] Carmella Agrawal Patricia, RN RN ph Page, Corey, Preethi Rowell cp, RN RN ll3 Tesha Macdonald RN RN kd3 Nella Peters PAJoseph PA-Darlin Reyes RN RN [email or web address] Adrian Armijo Darlin Banks RN, Lynsea RN ll3 Corrections: (The following items were deleted from the chart) 12/25 20:41 20:41 Allergies: No Known Allergies; kd3 kd3 12/26 01:55 01:16 Heparin (DVT/PE- Bolus per protocol) - HEParin IVP 80 units/kg IVP in left ll3 antecubital; Heparin ordered bolus changed to 4000units IVP per John Baeza,PA pf1
--- NOTE | 2022-12-26 00:36 | P.HP ---
Certification for Inpatient Patient admitted to: Inpatient With expected LOS: >2 Midnights Patient will require the following post-hospital care: None Practitioner: I am a practitioner with admitting privileges, knowledge of patient current condition, hospital course, and medical plan of care. Services: Services provided to patient in accordance with Admission requirements found in Title 42 Section 412.3 of the Code of Federal Regulations Patient History Date of Service: 12/26/22 Reason for admission: Bilateral PE History of Present Illness: Ms. Cadena is a 67-year-old female with no past medical history who presented to the emergency department with complaints of sudden onset of shortness of breath prior to arrival. She was noted to be tachycardic and hypoxic at 90% on room air upon arrival. Work-up revealed an elevated troponin at 815. Subsequent CTA chest showed bilateral pulmonary thromboemboli with thin saddle embolism and findings suggestive of right heart strain. Other labs significant for JULITA with a creatinine of 1.4, BUN 20. Oxygenation has improved after breathing treatment. Pulmonology was contacted and recommended initiation of heparin drip. Patient denies any recent travel, prolonged immobilization, recent surgeries, history of clotting disorders. She denies any chest pain or daily medication use. She will be admitted for further management. Allergies Penicillins Allergy (Verified 12/26/22 00:44) unknown Home medications list reviewed: Yes - Past Medical/Surgical History Diabetic: No Past Medical History: Patient denies medical history -: Bilateral Knees Psychosocial/ Personal History: Patient is . - Family History Mother -: Lung disease, Cancer - Social History Smoking Status: Former smoker Alcohol use: No CD- Drugs: No Caffeine use: Yes Place of Residence: Home Review of Systems Respiratory: Shortness of Breath Physical Examination - Vital Signs Temperature: 98.3 F Blood Pressure: 138/88 Pulse: 118 Respirations: 20 Pulse Ox (%): 95 - Physical Exam General: Alert, In no apparent distress HEENT: Atraumatic, EOMI, Sclerae nonicteric Neck: Supple, 2+ carotid pulse no bruit Respiratory: Clear to auscultation bilaterally, Normal air movement Cardiovascular: Regular rate/rhythm, Normal S1 S2 Gastrointestinal: Normal bowel sounds, No tenderness Musculoskeletal: No tenderness Integumentary: No rashes Neurological: Normal speech, Normal affect - Studies Laboratory Data (last 24 hrs) 12/25/22 21:37: Sodium 139, Potassium 4.0, BUN 20 H, Creatinine 1.40 H, Glucose 120 H, Magnesium 2.5 H, Total Bilirubin 0.3, AST 25, ALT 30, Alkaline Phosphatase 84 12/25/22 21:00: PT 12.4, INR 1.13 12/25/22 21:00: WBC 7.20, Hgb 14.2, Hct 43.3, Plt Count 241 Microbiology Data (last 24 hrs): 12/25/22 21:00 Nasopharnyx Influenza Type A Antigen Screen - Final 12/25/22 21:00 Nasopharnyx Influenza Type B Antigen Screen - Final Assessment and Plan - Problems (Diagnosis) (1) Pulmonary embolism, bilateral Current Visit: Yes Status: Acute (2) Saddle embolism of pulmonary artery Current Visit: Yes Status: Acute Qualifiers: Chronicity: acute Acute cor pulmonale presence: with acute cor pulmonale Qualified Code(s): I26.02 - Saddle embolus of pulmonary artery with acute cor pulmonale - Plan Patient is admitted for further management of bilateral PEs. Chest CTA showed bilateral pulmonary thromboemboli with thin saddle embolus and findings suggestive of right heart strain. Dr. Lorenzana contacted and recommended heparin drip, started in ED. Etiology of PE is unclear. She denies any recent travel, surgeries, prolonged immobilization, clotting disorders. She states her daughter did have a PE somewhat recently with unknown cause. Troponin elevation highly likely secondary to right heart strain. Continue to trend. Monitor pulse oximetry closely. Initially 90% on RA but now satisfactory. PRN breathing treatments. IV hydration for mild JULITA. Monitor and replete electrolytes per protocol. Discharge Plan: Home Plan to discharge in: Greater than 2 days - Advance Directives Does patient have a Living Will: No Does patient have a Durable POA for Healthcare: No - Code Status/Comfort Care Code Status Assessed: Yes Code Status: Full Code Physician Review: Patient Assessed, Agree with Above Assessment and Plan Critical Care: No Time Spent Managing Pts Care (In Minutes): 50
[2022-12-26] MEDS ORDERED: HEPARIN 5000 UNIT/ML 1 ML VIAL ONE (00:42)
[2022-12-26] MEDS ORDERED: HEPARIN/D5W 25,000 UNIT/500 ML BAG IV ONE (00:43)
[2022-12-26] MEDS ORDERED: IPRATROPIUM BROM 0.5MG/2.5ML NEB PRN (02:02)
[2022-12-26] MEDS ORDERED: ONDANSETRON 4 MG/2 ML VIAL IV PRN (02:02)
[2022-12-26] MEDS ORDERED: HEPARIN/D5W 25,000 UNIT/500 ML BAG IV SCH (02:02)
[2022-12-26] MEDS ORDERED: ACETAMINOPHEN 500 MG TAB PO PRN (02:02)
[2022-12-26] MEDS ORDERED: ALBUTEROL 2.5 MG/3 ML NEB SOL NEB PRN ×2 (02:02→13:00)
[2022-12-26] MEDS ORDERED: NA CHLORIDE 0.9% 1,000 ML IV SCH (02:02)
[2022-12-26 02:58] VITALS: BMI 24.9
[2022-12-26 05:47] LABS: Renal Epithelial <5 /HPF (None Seen); Specific Gravity 1.023 (1.005-1.030); Urine Bacteria None Seen /HPF (<20); Urine Bilirubin NEGATIVE (Negative); Urine Blood 1+ (Negative); Urine Clarity Clear (Clear); Urine Color Colorless (Yellow); Urine Glucose 2+ (Negative); Urine Protein NEGATIVE (Negative); Urine RBC <5 /HPF (None Seen); Urine Urobilinogen Normal (Normal)
[2022-12-26] MEDS ORDERED: PNEUMOCOCCAL VACCINE 0.5 ML IMVAC ONE (08:00)
[2022-12-26] MEDS: APIXABAN 5 MG TABLET PO SCH ×2 (09:49→20:18)
--- NOTE | 2022-12-26 11:22 | RAD REPORT ---
EXAM DESCRIPTION: CT - Chest For Pe Angio - 12/26/2022 7:03 am ADDENDUM #1 THIS REPORT CONTAINS FINDINGS THAT MAY BE CRITICAL TO PATIENT CARE: The findings were verbally discus sed via telephone conference with Dr. Baeza by Dr. Gerber Barrow on 12/26/2022 12:04 AM CDT .The resul ts were acknowledged and understood. Electronically signed by: Brigitte Barrow MD 12/26/2022 12:04 AM CDT End of Addendum EXAM DESCRIPTION: CT Angiography Chest With Intravenous Contrast CLINICAL HISTORY: The patient is 67 years old and is Female; SOB TECHNIQUE: Axial computed tomographic angiography images of the chest with intravenous contrast. S agittal and coronal reformatted images were created and reviewed. This CT exam was performed using one or more of the following dose reduction techniques: automated exposure control, adjustment of t he mA and/or kV according to patient size, and/or use of iterative reconstruction technique. MIP reconstructed images were created and reviewed. COMPARISON: No relevant prior studies available. FINDINGS: PULMONARY ARTERIES: Filling defect within the right main pulmonary artery extending into the right upper, right lower, right middle lobe pulmonary arteries and branches is present. A thin s addle embolus is present. Filling defect within the left main pulmonary artery extending into the lef t upper and left lower lobe pulmonary arteries and branches is present. AORTA: No acute findings. No thoracic aortic aneurysm. LUNGS: Minimal platelike atelectasis within the bilateral lower lobes is noted. The lungs are oth erwise well-inflated and clear. No mass. PLEURAL SPACE: Unremarkable. No significant effusion. No pneumothorax. HEART: There is an increased RV LV ratio. No significant pericardial effusion. BONES/JOINTS: No acute fracture. No dislocation. SOFT TISSUES: Unremarkable. LYMPH NODES: Unremarkable. No enlarged lymph nodes. IMPRESSION: Bilateral pulmonary thromboemboli with thin saddle embolus and findings suggestive of ri ght heart strain. Electronically signed by: Brigitte Barrow MD 12/25/2022 11:55 PM CDT Due to temporary technical issues with the PACS/Fluency reporting system, reports are being signed by the in house radiologists without review as a courtesy to insure prompt reporting. The interpreting radiologist is fully responsible for the content of the report.
--- NOTE | 2022-12-26 12:14 | P.CNS ---
Date of Consult: 12/26/22 Reason for Consult: Bilateral pulmonary embolism Chief Complaint: Bilateral PE History of Present Illness: Patient is 67 years of age he was visiting for a graduation celebration from [facility] acute onset of shortness of breath came here to the hospital and was diagnosed with bilateral pulmonary embolism other risk factors for pulmonary embolism patient is active works no prior history of thromboembolism and she is doing better Allergies Penicillins Allergy (Verified 12/26/22 02:07) Anaphylaxis Home Medications: Tizanidine HCl [Zanaflex] 2 mg PO BIDP PRN 12/26/22 - Past Medical/Surgical History Diabetic: No -: Bilateral Knees -: hysterectomy Psychosocial/ Personal History: Patient is . - Family History Mother Medical History: Lung disease, Cancer - Social History Smoking Status: Former smoker Alcohol use: Yes CD- Drugs: No Caffeine use: Yes Place of Residence: Home Review of Systems 10-point ROS is otherwise unremarkable Physical Examination Temp Pulse Resp BP Pulse Ox 98.4 F 94 H 16 136/85 91 12/26/22 08:00 12/26/22 08:00 12/26/22 08:00 12/26/22 08:00 12/26/22 08:00 General: Alert, Oriented x3 Neck: Supple Respiratory: Clear to auscultation bilaterally Cardiovascular: No edema, Regular rate/rhythm Laboratory Data (last 24 hrs) 12/25/22 21:37: Sodium 139, Potassium 4.0, BUN 20 H, Creatinine 1.40 H, Glucose 120 H, Magnesium 2.5 H, Total Bilirubin 0.3, AST 25, ALT 30, Alkaline Phosphatase 84 12/25/22 21:00: PT 12.4, INR 1.13, APTT Cancelled 12/25/22 21:00: WBC 7.20, Hgb 14.2, Hct 43.3, Plt Count 241 - Problems (1) Pulmonary embolism, bilateral Current Visit: Yes Status: Acute Plan: Patient is 67 years of age admitted with bilateral pulmonary embolism hemodynamically stable oxygenation satisfactory and can be changed over to p.o. Eliquis milligrams twice a day for 7 days then 5 mg twice daily possibly for an indefinite. Patient has idiopathic pulmonary embolism he is currently stable denies any shortness of breath plan for discharge home he has some right ventricular strain which cause elevation of her troponins patient has mild chronic renal failure I presume may have had some right ventricular strain
--- NOTE | 2022-12-27 07:10 | EKG ---
Test Date: 2022-12-25 Test Time: 21:07:34 Laboratory Secretary: LL MEASUREMENT RESULTS: Intervals: Rate: 101 DE: 152 QRSD: 86 QT: 342 QTc: 443 [place]: P: 73 DE: 152 QRS: 71 T: 34 INTERPRETIVE STATEMENTS: Sinus tachycardia Nonspecific T wave abnormality Abnormal ECG No previous ECG available for comparison Electronically Signed On 12-27-22 07:06:57 CDT by Alfonzo Chua
[2022-12-27] MEDS: APIXABAN 5 MG TABLET PO SCH (08:09)
--- NOTE | 2022-12-27 08:23 | ECHO ---
HEIGHT: 5 ft 3 in WEIGHT: 140 lb 9.6 oz DATE OF STUDY: 12/26/[address]: Alfonzo Chua MD 2-DIMENSIONAL: YES M.MODE: YES DOPPLER: YES COLOR FLOW: YES TDS: PORTABLE: YES DEFINITY: BUBBLE STUDY: DIAGNOSIS: PULMONARY EMBOLISM CARDIAC HISTORY: CATHERIZATION: SURGERY: PROSTHETIC VALVE: PACEMAKER: MEASUREMENTS (cm) DIASTOLIC (NORMALS) SYSTOLIC (NORMALS) IVSd 0.8 (0.6-1.2) LA Diam 3.3 (1.9-4.0) LVEF 78% LVIDd 4.0 (3.5-5.7) LVIDs 2.2 (2.0-3.5) %FS 47% LVPWd 1.0 (0.6-1.2) Ao Diam 2.5 (2.0-3.7) 2 DIMENSIONAL ASSESSMENT: RIGHT ATRIUM: NORMAL LEFT ATRIUM: NORMAL RIGHT VENTRICLE: NORMAL LEFT VENTRICLE: NORMAL TRICUSPID VALVE: NORMAL MITRAL VALVE: NORMAL PULMONIC VALVE: NORMAL AORTIC VALVE: NORMAL PERICARDIAL EFFUSION: NONE AORTIC ROOT: NORMAL LEFT VENTRICULAR WALL MOTION: NORMAL DOPPLER/COLOR FLOW: NORMAL COMMENTS: 1. NORMAL 2-DIMENSIONAL ECHOCARDIOGRAM WITH DOPPLER. 2. NO WALL MOTION ABNORMALITY 3. NORMAL RIGHT VENTRICULAR SYSTOLIC PRESSURE TECHNOLOGIST: JASON GARCIA
[2022-12-27 09:16] VITALS: O2SAT 97
--- NOTE | 2022-12-27 10:13 | P.PN ---
Date of Service: 12/26/22 Subjective Patient is doing well with no new c/o Physical Examination - Vital Signs reviewed - Physical Exam General: Alert, In no apparent distress Respiratory: Clear to auscultation bilaterally, Normal air movement Cardiovascular: Regular rate/rhythm, Normal S1 S2 Gastrointestinal: Normal bowel sounds, No tenderness Musculoskeletal: No tenderness Neurological: No focal deficits Assessment and Plan - Problems (Diagnosis) (1) Pulmonary embolism, bilateral Current Visit: Yes Status: Acute (2) Saddle embolism of pulmonary artery Current Visit: Yes Status: Acute Chronicity: acute Acute cor pulmonale presence: with acute cor pulmonale Qualified Code(s): I26.02 - Saddle embolus of pulmonary artery with acute cor pulmonale - Plan -thin saddle embolus and findings suggestive of right heart strain. -Dr. Lorenzana changed to [place] -Etiology of PE is unclear. She denies any recent travel, surgeries, prolonged immobilization, clotting disorders. She states her daughter did have a PE somew hat recently with unknown cause. -Troponin elevation highly likely secondary to right heart strain. Echo pending -Monitor pulse oximetry closely -PRN breathing treatments. -Heplock IV Discharge Plan: Home Plan to discharge in: Greater than 2 days - Advance Directives Does patient have a Living Will: No Does patient have a Durable POA for Healthcare: No - Code Status/Comfort Care Code Status Assessed: Yes Code Status: Full Code Physician Review: Patient Assessed, Agree with Above Assessment and Plan Critical Care: No Time Spent Managing Pts Care (In Minutes): 50
[2022-12-27 11:53] LABS: Absolute Lymphocytes (CBC) 2.8 K/uL (0.7-4.9); Hematocrit 42.5 % (36.0-45.0); MCV 83.2 fL (80-100); RBC Red Blood Cell Count 5.11 M/uL (3.86-4.86)
--- NOTE | 2022-12-27 12:10 | CON ---
Date of Consultation: 12/26/2022 Reason For Consultation: Elevated troponin. History Of Present Illness: Ms. Cadena is a 67-year-old, who really is fairly healthy, lives in [facility], not really has any past medical history of any significance, but came into the hospital with sudden shortness of breath, elevated D-dimer, elevated troponin, was found to have a saddle embolus. No cardiac complaint at this point. She denied palpitations or syncope. Past Medical History: Negative. Allergies: INCLUDE PENICILLIN. Medications: At home are none. Review of Systems: Negative. Social History: Negative. Family History: Negative. Physical Examination: Vital Signs: Stable, afebrile. HEENT: Negative. Neck: Supple with no bruit. Chest: Clear. Cardiac: Revealed a regular rhythm and rate. No murmurs, gallops, or rubs. Abdomen: Benign. Extremities: Revealed no clubbing, cyanosis, or edema. Diagnostic Data: As stated earlier. Impression And Plan: Elevated troponin, elevated D-dimer secondary to saddle embolus. She is on hep misty drip. Echocardiogram is pending. Rule out right ventricular strain and pulmonary hypertension. She will eventually need an outpatient Lexiscan that will be arranged by doctor in [place] where she lives. No further cardiac workup at this point other than the echo. JURGEN/SHAMEKA Voice ID: [id number] Report ID: [id number]
[2022-12-27 12:14] LABS: Albumin 3.6 g/dL (3.4-5.0); Bilirubin Total 0.3 mg/dL (0.2-1.0); Magnesium 2.5 mg/dL (1.6-2.4); Potassium 3.8 mEq/L (3.5-5.1); Protein, Total 7.7 g/dL (6.4-8.2)
[2022-12-27 12:21] LABS: Troponin High Sensitivity 350.8 pg/mL (<58.9)
[2022-12-27 12:48] VITALS: BP 119/76; TEMP 98.8
[2022-12-27] MEDS ORDERED: POTASSIUM CL SA 10 MEQ TAB PO ONE (12:55)
[2022-12-28 06:18] LABS: RPR (Rapid Plasma Reagin) NON-REACT (NON-REACT)
[2022-12-30 21:12] LABS: Alpha-1-Globulins 0.3 g/dL (0.2-0.3); Gamma Globulins 1.1 g/dL (0.8-1.7); INTERPRETATION REPORT
[2022-12-31 12:18] LABS: Prothrombin Gene Analysis Test NEGATIVE
== END 2022-12-27 15:02 | disposition home or self-care (01) | DRG 175 ==
LOC: ER 20:24 → ERHOLD 12-26 00:26 → 2ND 12-26 00:45
PROVIDERS: ADMIT Hospitalist; ATTEND Hospitalist
DX: I26.02 Saddle embolus of pulmonary artery with acute cor pulmonale (principal); N17.9 Acute kidney failure, unspecified; R77.8 Other specified abnormalities of plasma proteins; Z88.0 Allergy status to penicillin; Z87.891 Personal history of nicotine dependence; Z79.899 Other long term (current) drug therapy; Z90.710 Acquired absence of both cervix and uterus; Z20.822 Contact with and (suspected) exposure to COVID-19
CPT/HCPCS: 36415; 71045; 71275; 80048; 80053; 80061; 80076; 81001; 81240; 81241; 82306; 82607; 83090; 83516; 83735; 83880; 84165; 84484; 85025; 85300; 85302; 85305; 85306; 85610; 85730; 86021; 86146; 86147; 86592; 87804; 87811; 93005; 93306; 94760; 96374; 99285; J1644; J7030; J7512; J7614; Q9967